=== PATIENT | female | born 1965 | race African-American/Black ===

== ENCOUNTER 2023-04-04 07:08 | Emergency (ER) | payer BC ==
[2023-04-04] MEDS ORDERED: Dexamethasone 10 MG/ML VIAL ONE (07:38)
[2023-04-04] MEDS ORDERED: Ibuprofen 200 MG TAB ONE (07:39)
[2023-04-04] MEDS ORDERED: Amoxicillin/Potassium Clav 875 MG TAB ONE (07:39)
== END 2023-04-04 07:57 | disposition home or self-care (01) ==
LOC: CSHERS 07:08
DX: J01.90 Acute sinusitis, unspecified (principal)
CPT/HCPCS: 99282; J1100